=== PATIENT | female | born 1970 | race Caucasian/White ===

== ENCOUNTER 2020-05-27 16:49 | Emergency (ER) | payer OTHER, SELFPAY ==
[2020-05-27 17:56] LABS: Amphetamine Not Detected (NotDetected); Barbiturates Screen Not Detected (NotDetected); Benzodiazepine Screen Detected (NotDetected); Cocaine Metabolite Screen Not Detected (NotDetected); Medtox Control Line Valid? VALID (VALID); Methadone Not Detected (NotDetected); Methamphetamine Not Detected (NotDetected); Opiate Screen Not Detected (NotDetected); Oxycodone Screen Not Detected (NotDetected); Phencyclidine (PCP) Not Detected (NotDetected); THC/Cannabinoid Screen Not Detected (NotDetected); Tricyclic Screen Not Detected (NotDetected)
[2020-05-27 18:01] LABS: ALT (SGPT) 19 U/L (8-55); AST (SGOT) 22 U/L (5-34); Acetaminophen Less than 6.0 mcg/mL (10.0-30.0); Albumin 3.8 g/dL (3.5-5.0); Alcohol Less than 10 mg/dL (Less than 10); Alkaline Phosphatase 86 U/L (40-110); Anion Gap 15 mmol/L (10-20); BUN (Urea Nitrogen) 10 mg/dL (9.8-20.1); Bilirubin, Total 0.7 mg/dL (0.2-1.2); Calc. Creatinine Clearance 0 mL/min (70-130); Calcium 8.8 mg/dL (7.8-10.44); Carbon Dioxide 25 mmol/L (22-29); Chloride 105 mmol/L (98-107); Estimated GFR-MDRD 65; Globulin 3.3 g/dL (2.4-3.5); Glucose 109 mg/dL (70-105); Protein, Total 7.1 g/dL (6.0-8.3); Salicylate Less than 8.0 mg/dL (15.0-30.0); Sodium 142 mmol/L (136-145)
[2020-05-27 18:03] LABS: #Basophils 0.1 thou/uL (0.0-0.2); #Eosinphils 0.1 thou/uL (0.0-0.7); #Monocytes 0.7 thou/uL (0.11-0.59); #Neutrophils 5.3 thou/uL (1.40-6.50); %Basophils 0.7 % (0.0-1.0); %Eosinophils 0.9 % (0.0-10.0); %Lymphocytes 24.8 % (21.0-51.0); %Monocytes 8.1 % (0.0-10.0); %Neutrophils 65.5 % (42.0-75.0); Anisocytosis SLIGHT = 6-15 cells (100X) (0-5/hpf); Hemoglobin 9.2 g/dL (12.0-16.0); Hypochromia MODERATE=16-30 cells (100X) (0-5/hpf); MDiff Complete? YES; Mean Corpuscular HGB CONC 29.9 g/dL (32.0-36.0); Mean Corpuscular Hemoglobin 20.3 pg (27.0-31.0); Mean Corpuscular Volume 67.9 fL (78.0-98.0); Mean Platelet Volume 7.4 fL (7.4-10.4); Ovalocytes SLIGHT = 2-5 cells (100X) (0-1/hpf); Platelet Count 349 thou/uL (130-400); Platelet Morphology Comment Appears Adequate; RBC Distribution Width 16.8 % (11.5-14.5); Red Blood Cell (RBC) Count 4.53 mill/uL (4.20-5.40); White Blood Cell (WBC) Count 8.1 thou/uL (4.8-10.8)
== END 2020-05-27 21:00 | disposition home or self-care (01) ==
LOC: MADERS 16:49
DX: F41.9 Anxiety disorder, unspecified (principal); G43.909 Migraine, unspecified, not intractable, without status migrainosus; F31.9 Bipolar disorder, unspecified; Z79.899 Other long term (current) drug therapy
CPT/HCPCS: 36415; 80053; 80306; 80307; 84443; 85025; 99283

== ENCOUNTER 2021-03-09 16:30 | Emergency (ER) | payer OTHER ==
[2021-03-09] MEDS ORDERED: predniSONE 20 MG TAB ONE (17:49)
== END 2021-03-09 17:55 | disposition home or self-care (01) ==
LOC: MADERS 16:30
DX: M15.9 Polyosteoarthritis, unspecified (principal); G43.909 Migraine, unspecified, not intractable, without status migrainosus
CPT/HCPCS: 36416; 99283; J7512

== ENCOUNTER 2021-03-21 14:11 | Emergency (ER) | payer OTHER ==
[2021-03-21] MEDS ORDERED: Ketorolac Tromethamine 30 MG/ML VIAL ONE (14:47)
[2021-03-21] MEDS ORDERED: Bacitracin 1 PK ONE (14:47)
== END 2021-03-21 14:59 | disposition home or self-care (01) ==
LOC: MADERS 14:11
DX: T23.272A Burn of second degree of left wrist, initial encounter (principal); T22.112A Burn of first degree of left forearm, initial encounter; G43.909 Migraine, unspecified, not intractable, without status migrainosus; Z79.899 Other long term (current) drug therapy; X12.XXXA Contact with other hot fluids, initial encounter
CPT/HCPCS: 96372; 99283; J1885

== ENCOUNTER 2021-04-12 16:48 | Emergency (ER) | payer OTHER ==
[2021-04-12] MEDS ORDERED: Sulfameth/Trimethoprim DS 800-160mg TAB ONE (17:28)
== END 2021-04-12 17:38 | disposition home or self-care (01) ==
LOC: MADERS 16:48
DX: T63.301A Toxic effect of unspecified spider venom, accidental (unintentional), initial encounter (principal); H60.502 Unspecified acute noninfective otitis externa, left ear; E03.9 Hypothyroidism, unspecified; D61.9 Aplastic anemia, unspecified; G43.909 Migraine, unspecified, not intractable, without status migrainosus
CPT/HCPCS: 99282

== ENCOUNTER 2021-07-12 14:12 | Emergency (ER) | payer OTHER | END 2021-07-12 15:15 | disposition home or self-care (01) | LOC: MADERS 14:12 | DX: H00.012 Hordeolum externum right lower eyelid (principal); L03.211 Cellulitis of face; E03.9 Hypothyroidism, unspecified; D61.9 Aplastic anemia, unspecified | CPT/HCPCS: 99283 ==

== ENCOUNTER 2021-07-13 14:21 | Emergency (ER) | payer OTHER ==
[2021-07-13] MEDS ORDERED: predniSONE 10 MG TAB ONE (17:09)
[2021-07-13] MEDS ORDERED: predniSONE 20 MG TAB ONE (17:09)
== END 2021-07-13 17:15 | disposition home or self-care (01) ==
LOC: MADERS 14:21
DX: L27.0 Generalized skin eruption due to drugs and medicaments taken internally (principal); T37.0X5A Adverse effect of sulfonamides, initial encounter; E03.9 Hypothyroidism, unspecified; D61.9 Aplastic anemia, unspecified
CPT/HCPCS: 99283; J7512

== ENCOUNTER 2022-09-11 19:38 | Emergency (ER) | payer OTHER ==
[2022-09-11 20:29] LABS: Bilirubin Small (Negative); Blood, Urine Negative (Negative); Clarity Cloudy (Clear); Glucose, Urine (Dipstick) Negative (Negative); Ketone, Urine Trace mg/dL (Negative); Leukocyte Small (Negative); Nitrite Negative (Negative); Protein, Urine (Dipstick) 30 mg/dL (Neg-Trace); Urobilinogen 0.2 mg/dL (Less than 2); pH, Urine 5.5 (5.0-9.0)
[2022-09-11 20:39] LABS: Bacteria/HPF 2+ HPF (None Seen); Calcium Oxalate Crystals 2+ HPF (None Seen); RBC/HPF 0-3 HPF (0-3); Squamous Epithelial Greater than 50 HPF (0-3)
[2022-09-11 20:45] LABS: #Basophils 0.1 thou/uL (0.0-0.2); #Lymphocytes 2.1 thou/uL (1.20-3.40); #Monocytes 0.6 thou/uL (0.11-0.59); #Neutrophils 8.4 thou/uL (1.40-6.50); %Basophils 0.7 % (0.0-1.0); %Eosinophils 0.1 % (0.0-10.0); %Lymphocytes 18.5 % (21.0-51.0); %Monocytes 5.3 % (0.0-10.0); %Neutrophils 75.4 % (42.0-75.0); Hemoglobin 13.4 g/dL (12.0-16.0); Mean Corpuscular HGB CONC 32.3 g/dL (32.0-36.0); Mean Corpuscular Hemoglobin 27.6 pg (27.0-31.0); Mean Corpuscular Volume 85.7 fl (78.0-98.0); Mean Platelet Volume 7.4 fL (7.4-10.4); Platelet Count 368 10x3/uL (130-400); RBC Distribution Width 13.2 % (11.5-14.5); Red Blood Cell (RBC) Count 4.84 mill/uL (4.20-5.40); White Blood Cell (WBC) Count 11.1 10x3/uL (4.8-10.8)
[2022-09-11 20:48] LABS: Amphetamine Not Detected (NotDetected); Barbiturates Screen Not Detected (NotDetected); Benzodiazepine Screen Not Detected (NotDetected); Cocaine Metabolite Screen Not Detected (NotDetected); Medtox Control Line Valid? VALID (VALID); Methadone Not Detected (NotDetected); Methamphetamine Not Detected (NotDetected); Opiate Screen Not Detected (NotDetected); Oxycodone Screen Not Detected (NotDetected); Phencyclidine (PCP) Not Detected (NotDetected); THC/Cannabinoid Screen Not Detected (NotDetected); Tricyclic Screen Detected (NotDetected)
[2022-09-11 21:06] LABS: ALT (SGPT) 29 U/L (8-55); AST (SGOT) 28 U/L (5-34); Albumin 4.2 g/dL (3.5-5.0); Alkaline Phosphatase 132 U/L (40-110); Anion Gap 18 mmol/L (10-20); BUN (Urea Nitrogen) 13 mg/dL (9.8-20.1); Bilirubin, Total 0.3 mg/dL (0.2-1.2); Calc. Creatinine Clearance 0 mL/min (70-130); Calcium 9.6 mg/dL (7.8-10.44); Carbon Dioxide 22 mmol/L (22-29); Chloride 105 mmol/L (98-107); Estimated GFR 37; Glucose 115 mg/dL (70-105); Potassium 3.8 mmol/L (3.5-5.1); Protein, Total 8.2 g/dL (6.0-8.3); Sodium 141 mmol/L (136-145)
[2022-09-11] MEDS ORDERED: Acetaminophen 500 MG TAB ONE (21:07)
[2022-09-11] MEDS ORDERED: Sodium Chloride 0.9% 1,000 ML ONE (21:18)
== END 2022-09-11 22:21 | disposition home or self-care (01) ==
LOC: MADERS 19:38
DX: I10 Essential (primary) hypertension (principal); E86.0 Dehydration; N28.9 Disorder of kidney and ureter, unspecified; R79.89 Other specified abnormal findings of blood chemistry; K21.9 Gastro-esophageal reflux disease without esophagitis; E03.9 Hypothyroidism, unspecified; Z87.891 Personal history of nicotine dependence; Z79.899 Other long term (current) drug therapy
CPT/HCPCS: 71045; 80053; 80306; 81003; 81015; 84443; 84484; 85025; 93005; 96360; J7050

== ENCOUNTER 2023-01-25 11:19 | Emergency (ER) | payer OTHER ==
[~2023-01-25 11:19] MED LIST: Iopamidol 370 76% 100 ML VIAL ONE
[2023-01-25] MEDS ORDERED: Lactated Ringer's 1,000 ML ONE ×2 (12:04→13:50)
[2023-01-25 12:27] LABS: ALT (SGPT) 14 U/L (8-55); AST (SGOT) 21 U/L (5-34); Albumin 3.4 g/dL (3.5-5.0); Alkaline Phosphatase 107 U/L (40-110); Anion Gap 14 mmol/L (10-20); BUN (Urea Nitrogen) 11 mg/dL (9.8-20.1); Bilirubin, Total 0.5 mg/dL (0.2-1.2); Calc. Creatinine Clearance 0 mL/min (70-130); Calcium 9.3 mg/dL (7.8-10.44); Carbon Dioxide 24 mmol/L (22-29); Chloride 102 mmol/L (98-107); Estimated GFR 55; Globulin 3.7 g/dL (2.4-3.5); Glucose 111 mg/dL (70-105); Potassium 3.9 mmol/L (3.5-5.1); Protein, Total 7.1 g/dL (6.0-8.3); Sodium 136 mmol/L (136-145)
[2023-01-25 12:40] LABS: Band 2 % (5-11); Eosinophils 1 % (0-10); Hemoglobin 12.1 g/dL (12.0-16.0); Lymphocytes 4 % (21-51); MDiff Complete? YES; Mean Corpuscular HGB CONC 32.8 g/dL (32.0-36.0); Mean Corpuscular Hemoglobin 28.8 pg (27.0-31.0); Mean Corpuscular Volume 87.8 fl (78.0-98.0); Monocytes 6 % (0-10); Neutrophil 71 % (42-75); Platelet Count 255 10x3/uL (130-400); Platelet Morphology Comment Appears Adequate; RBC Distribution Width 12.4 % (11.5-14.5); RBC Morphology Normal; Reactive Lymphocytes 16 % (0-10); Red Blood Cell (RBC) Count 4.22 mill/uL (4.20-5.40); White Blood Cell (WBC) Count 7.6 10x3/uL (4.8-10.8)
[2023-01-25] MEDS ORDERED: Ampicillin/Sulbactam 3 GM VIAL ONE (13:04)
[2023-01-25] MEDS ORDERED: Sodium Chloride 0.9% 100 ML ONE (13:04)
[2023-01-25] MEDS ORDERED: Morphine 4 MG/ML VIAL ONE (13:50)
[2023-01-25] MEDS ORDERED: Ketorolac Tromethamine 30 MG/ML VIAL ONE (15:18)
== END 2023-01-25 15:54 | disposition short-term general hospital (02) ==
LOC: MADERS 11:19
DX: K11.20 Sialoadenitis, unspecified (principal); K21.9 Gastro-esophageal reflux disease without esophagitis; E03.9 Hypothyroidism, unspecified; Z87.891 Personal history of nicotine dependence
CPT/HCPCS: 70450; 70491; 80053; 83605; 85025; 87040; 94760; 96365; 96375; J0295; J1885; J2270; J3490; J7120; Q9967